=== PATIENT | male | born 1980 | race Caucasian/White ===

== ENCOUNTER 2018-11-20 22:18 | Emergency (ER) | payer BC, SELFPAY ==
[2018-11-20 22:25] VITALS: BP 158/81; PULSE 64; RESP 12; TEMP 36.8; O2SAT 100; BMI 38.9
--- NOTE | 2018-11-20 22:40 | PC.NURSE ---
Woman with pt came out to nurses station and was requesting something for pain for the pt. She was informed that the doctor would need to see him before he could be given pain medication. She then said we came from [place] and he is in a lot of pain. I told her that I understand he is in pain but the doctor is in with a patient right now. She then said don't you triage patient's? I told her that we do triage patients and he has been triaged. She then said to me so a pain of 10/10 doesn't get him seen first. I informed her that there are other patients in the department right now that I was not going to tell her why other patients were here to rationalize why he (the patient) hadn't been seen yet. I told her again that the provider would be in to see him as soon as she could that there was one or two patients to be seen before him. She then pulled the curtain open. I told her that we needed to shut the curtain and the door to the room for his (the patient's) privacy and other patients in the department privacy. She told me no it will stay open because I want the doctor to see how much pain he is in. I then told her that the door and curtain needed to be shut and if she refused to keep it shut I would have to ask her to go sit in the lobby.
[2018-11-20 22:41] LABS: RBC Urine 1-5/HPF (0-5/HPF); WBC Urine 0-1/HPF (0-5/HPF)
[2018-11-20 22:42] LABS: Bacteria Urine Few (2-10); Calcium Oxalate Crystals Urine Occasional; Hyaline Casts Urine 0-1/LPF; Mucus Urine 1+ (Negative); Squamous Epithelial Cell Urine 0-1 /HPF (0-5/HPF)
[2018-11-20 22:43] LABS: Culture Indicated Urine Cult Not Indicated
[2018-11-20 23:44] VITALS: BP 163/95; PULSE 67; O2SAT 98
[2018-11-20] MEDS: ACETAMINOPHEN 325 MG TABLET 650 MG PO (23:46)
[2018-11-20] MEDS: ONDANSETRON 4 MG ODT SL (23:46)
--- NOTE | 2018-11-21 | ED.MALEGU ---
HPI - Male Genitourinary General Chief complaint: Urogenital-Male Stated complaint: STATES KIDNEY STONES Time Seen by Provider: 11/20/18 23:40 Source: patient Mode of arrival: ambulatory Limitations: no limitations History of Present Illness HPI Narrative: Patient comes emergency department complaining of left flank pain that started about 3 hours ago. He states that he is here from the [facility] and was camping on [facility], and began to feel as though he may be having a kidney stone again. Patient states he has felt dehydrated for about the last week after dejaying for a wedding about a week ago and then being busy with other stressors in life. Patient states he has not been drinking enough fluids, and is concerned this may have impacted his symptoms. Patient admits to some nausea but no vomiting. No fevers or chills. No dysuria. No gross hematuria. No abdominal pain. Patient states the left flank pain radiates into his left testicle. Patient has had several experiences with kidney stones in the past, he states. No other complaints at this time. Related Data Previous Rx's Medication Instructions Recorded hydrocodone-acetaminophen 1 tab PO Q4-6H PRN #14 tab 11/21/18 ondansetron 4 mg PO Q6H PRN #14 tab 11/21/18 Allergies Allergy/AdvReac Type Severity Reaction Status Date / Time cefaclor [From [facility]] Allergy Verified 11/20/18 22:28 Review of Systems Constitutional Denies chills, Denies fever(s), Denies lethargy and Denies weakness Eyes Denies change in vision, Denies eye discharge, Denies irritation and Denies loss of vision ENT Ears, Nose, Mouth, and Throat: Denies change in voice, Denies neck pain and Denies sore throat Cardiovascular Denies chest pain, Denies irregular heart rhythm, Denies lightheadedness, Denies palpitations, Denies dyspnea, Denies dyspnea on exertion and Denies orthopnea Respiratory Denies cough, Denies dyspnea, Denies dyspnea on exertion and Denies wheezing Gastrointestinal Gastrointestinal: Reports abdominal pain (Left flank), Denies change in bowel habits, Denies diarrhea, Denies nausea and Denies vomiting Genitourinary Denies hematuria, Denies flank pain, Denies urinary incontinence and Denies urinary urgency Musculoskeletal Denies neck pain Integumentary/Breasts Denies pruritus, Denies erythema, Denies rash and Denies wounds Neurologic Denies confusion, Denies loss of vision and Denies weakness Psychiatric Denies anxiety, Denies confusion, Denies depression, Denies homicidal ideation and Denies suicidal ideation Endocrine Denies palpitations Hematologic/Lymphatic Denies easy bruising Allergic/Immunologic Denies wheezing [facility] Medical History Kidney stones (Acute) Surgical History Obesity surgery status (Acute) Social History Smoking Status: Unknown if ever smoked Social History Smoking Status: Unknown if ever smoked Comment: Surgical history: Gastric sleeve Exam Initial Vital Signs Initial Vital Signs: Vital Signs Temperature 98.2 F 11/20/18 22:25 Pulse Rate 64 11/20/18 22:25 Respiratory Rate 12 11/20/18 22:25 Blood Pressure 158/81 H 11/20/18 22:25 Pulse Oximetry 100 11/20/18 22:25 Const General: cooperative and well developed Nutritional Appearance: well nourished Orientation: alert, awake, oriented x3 and not confused [facility] Head: normocephalic and atraumatic Ears: external ears normal Nose: external nose normal and No nasal discharge Face and sinus: face symmetric and No dry mucous membranes Mouth: oral mucosae normal and moist mucous membranes Teeth and gingiva: dentition normal Eyes General: appearance normal, both eyes and all related structures Eyelids: eyelids normal Conjunctivae: conjunctivae normal Sclera: sclerae normal Pupils: PERRL EOM: EOM intact bilaterally Neck Neck: normal visual inspection, trachea midline, No lymphadenopathy, No midline deformity and No JVD Lymphatic: No lymphedema Chest Chest: normal inspection of the chest Resp Effort & Inspection: normal respiratory effort, able to speak in complete sentences, no respiratory distress and no use of accessory muscles Auscultation: clear to auscultation bilaterally, no rales, no rhonchi and no wheezes Cardio Rate: regular rate Rhythm: regular rhythm Heart Sounds: no click, no gallops, no murmurs and no rubs Pulses: normal peripheral pulses GI Inspection: non-distended Palpation: soft, no hepatosplenomegaly, No guarding, No pulsatile mass and No tender Auscultation: normal bowel sounds Back/Spine/Pelvis Back: CVA tenderness (Left, mild) Cervical Spine: cervical ROM normal and No pain with cervical ROM Thoracic/Lumbar Spine: thoracic and lumbar spine normal to inspection Skin General: no rashes or lesions noted, No jaundice and No petechiae Neuro General: alert, oriented x3, gait normal and no focal motor deficits Speech: speech normal Extrem General: full ROM, no clubbing, cyanosis or edema, no pedal edema and no calf tenderness Psych Appearance: well kempt Mental Status: mental status grossly normal Attitude: cooperative Thought Content: normal and suicidality Judgment: judgment good Course Course Narrative: Patient was treated symptomatically with IV fluid, Zofran, Tylenol, Toradol, and a small dose of Dilaudid. He was sent for a CT KUB to evaluate for possible kidney stone, and this did show a 6 mm stone at the left UVJ. We have discussed home management symptoms, as well as the indications for urology follow-up in the usual indications for return to the emergency department. Patient is stable for discharge home. Subsequent to this patient's leaving the emergency department, the CT, which was initially read by the shift leader radiologist, was over-read by our in-house radiologist the following day. The soft tissue mass which had been noted on the CT scan incidentally was given a low probability of neoplasm on the initial shift leader radiologist reading, and as such, given the patient's asymptomatic for this, was not addressed at discharge. However, the in-house radiology reading the next day placed more emphasis on the possibility of a neoplasm. As such, the patient was called at home to be advised that he should follow up for an MRI to further evaluate this finding. Orders Ordered: Discontinued Medications Acetaminophen (Tylenol) 650 mg PO NOW ONE Stop: 11/20/18 23:45 Last Admin: 11/20/18 23:46 Dose: 650 mg Hydromorphone HCl (Dilaudid) 0.5 mg IV NOW ONE Stop: 11/21/18 00:11 Last Admin: 11/21/18 00:17 Dose: 0.5 mg Sodium Chloride (Normal Saline 0.9%) 1,000 mls @ 1,000 mls/hr IV BOLUS ONE Stop: 11/21/18 01:09 Last Infusion: 11/21/18 01:47 Dose: 0 mls/hr Admin: 11/21/18 00:16 Dose: 1,000 mls/hr Ketorolac Tromethamine (Toradol) 30 mg IV NOW ONE Stop: 11/21/18 00:11 Last Admin: 11/21/18 00:17 Dose: 30 mg Ondansetron HCl (Zofran Odt) 4 mg SL NOW ONE Stop: 11/20/18 23:45 Last Admin: 11/20/18 23:46 Dose: 4 mg Vital Signs - 8 hr 11/20/18 22:25 11/20/18 23:44 Temperature 98.2 F Pulse Rate 64 67 Respiratory Rate 12 Blood Pressure 158/81 H Blood Pressure [Left Arm] 163/95 H Pulse Oximetry 100 98 MDM - Male Genitourinary Medical Records Attestation: I reviewed the patient's medical records. Lab Data Attestation: I reviewed the patient's lab results. Lab Results 11/20/18 Range/Units 22:22 Urine RBC 1-5/hpf (0-5/HPF) Urine WBC 0-1/hpf (0-5/HPF) Ur Squamous Epith Cells 0-1 /hpf (0-5/HPF) Calcium Oxalate Crystal Occasional H Urine Bacteria Few (2-10) H (None) Hyaline Casts 0-1/lpf (None) Urine Mucus 1+ H (Negative) Ur Culture Indicated? Cult not indicated Urine Dip Bedside Urine Glucose Negative Bedside Urine Bilirubin - Negative Bedside Urine Ketone + 15 Urine Specific [place] 1.030 Bedside Urine Occult Blood + Bedside Urine pH 6.0 Bedside Urine Protein +/- 15 Bedside Urine Urobilinogen - Negative Bedside Urine Nitrite - Negative Bedside Urine Leukocytes - Negative Esterase Imaging Data CT scan - abdomen: Attestation: I personally reviewed and interpreted this imaging study as follows: My impression: night shift supervisor radiologist interpretation: 4.3 cm circumscribed low attenuation mass extends from the inferior aspect of the left sacrum contiguous with the sacral spinal canal. This mass is nonspecific. Considerations would include meningitis seal or Tarlov cyst. Neoplasm less likely. Radiologist's impression: PROCEDURE: CT KIDNEY URETER BLADDER (KUB) INDICATIONS: Left flank pain, history of kidney stones TECHNIQUE: Noncontrast 5 mm thick sections acquired from the diaphragms to the symphysis. 5 mm thick coronal and sagittal reformats were then performed. For radiation dose reduction, the following was used: automated exposure control, adjustment of mA and/or kV according to patient size. COMPARISON: None. FINDINGS: Image quality: Excellent. Lung bases: Lung bases are clear. Heart size is normal. Urinary system: Both kidneys are normal in size. 2 mm stone is noted in the lower pole of the left kidney. 4 x 6 mm stone is noted just proximal to the left UVJ causing [id number] left-sided hydronephrosis. No right-sided renal stones or hydronephrosis. Bladder wall thickness is normal; no calcified bladder stones. Other solid organs: Liver is normal in size. Gallbladder contains small gallstones.. Pancreas is normal in contours. Spleen is normal in size. No adrenal nodules. Peritoneum and bowel: Unenhanced bowel loops demonstrate normal wall thickness and caliber. No free fluid or air. Nodes and vessels: No retroperitoneal or mesenteric adenopathy by size criteria. Aorta and inferior vena cava are normal in caliber. Abdominal wall: No ventral hernias. Pelvis: No free pelvic fluid. No inguinal hernias or adenopathy. There is a 4.0 x 4.3 x 3.6 cm low-density mass in the left paramedian, presacral lower pelvis. Lesion appears to communicate with the spinal canal via left S4 neural foramen. Bones: No suspicious bony lesions. No vertebral body compression fractures. Spine degenerative disc disease and facet arthropathy. IMPRESSION: 1. 4 x 6 mm stone in the distal left ureter causing mild to moderate left-sided hydronephrosis. 2. 2 mm nonobstructing left renal stone. 3. Cholelithiasis. 4. 4.0 x 4.3 x 3.6 cm left presacral low-density lesion which appears to communicate with the sacral spinal canal. Recommend MRI of the sacral spine with and without contrast in differentiating arachnoid cyst from neoplastic process such as dermoid. Final interpretation is concordant with preliminary interpretation. Dictated by: Alyssia Salas MD, PhD on 11/21/2018 at 7:26 Approved by: Alyssia Salas MD, PhD on 11/21/2018 at 7:34 Discharge Plan Departure Patient Disposition: Home Clinical Impression: Kidney stones Discharge Date/Time: 11/21/18 01:55 Interventions: ED Discharge Assessment Last Done: 11/21/18 01:54 Instructions: DI for Kidney Stones Activity Restrictions/Additional Instructions: Your CT scan showed a 6 mm stone that is in her ureter but about to enter your bladder. This is most likely the cause of her pain. However, based on the degree of movement the stone has already made, this should most likely pass on its own soon. Please continue to drink plenty of fluid. Take the pain and nausea medication, as needed. Please followup the urologist if you have not passed the stone after this next week. Prescriptions: New hydrocodone-acetaminophen 5-325 mg tablet 1 tab PO Q4-6H PRN (Reason: pain) Qty: 14 RF: 0 ondansetron 4 mg tablet,disintegrating 4 mg PO Q6H PRN (Reason: nausea and vomiting) Qty: 14 RF: 0 Referrals: [facility] Urology [Provider Group]
--- NOTE | 2018-11-21 00:11 | DI.CT.S_ITS ---
PROCEDURE: CT KIDNEY URETER BLADDER (KUB) INDICATIONS: Left flank pain, history of kidney stones TECHNIQUE: Noncontrast 5 mm thick sections acquired from the diaphragms to the symphysis. 5 mm thick coronal and sagittal reformats were then performed. For radiation dose reduction, the following was used: automated exposure control, adjustment of mA and/or kV according to patient size. COMPARISON: None. FINDINGS: Image quality: Excellent. Lung bases: Lung bases are clear. Heart size is normal. Urinary system: Both kidneys are normal in size. 2 mm stone is noted in the lower pole of the left kidney. 4 x 6 mm stone is noted just proximal to the left UVJ causing [id number] left-sided hydronephrosis. No right-sided renal stones or hydronephrosis. Bladder wall thickness is normal; no calcified bladder stones. Other solid organs: Liver is normal in size. Gallbladder contains small gallstones.. Pancreas is normal in contours. Spleen is normal in size. No adrenal nodules. Peritoneum and bowel: Unenhanced bowel loops demonstrate normal wall thickness and caliber. No free fluid or air. Nodes and vessels: No retroperitoneal or mesenteric adenopathy by size criteria. Aorta and inferior vena cava are normal in caliber. Abdominal wall: No ventral hernias. Pelvis: No free pelvic fluid. No inguinal hernias or adenopathy. There is a 4.0 x 4.3 x 3.6 cm low-density mass in the left paramedian, presacral lower pelvis. Lesion appears to communicate with the spinal canal via left S4 neural foramen. Bones: No suspicious bony lesions. No vertebral body compression fractures. Spine degenerative disc disease and facet arthropathy. IMPRESSION: 1. 4 x 6 mm stone in the distal left ureter causing mild to moderate left-sided hydronephrosis. 2. 2 mm nonobstructing left renal stone. 3. Cholelithiasis. 4. 4.0 x 4.3 x 3.6 cm left presacral low-density lesion which appears to communicate with the sacral spinal canal. Recommend MRI of the sacral spine with and without contrast in differentiating arachnoid cyst from neoplastic process such as dermoid. Final interpretation is concordant with preliminary interpretation. Dictated by: Alyssia Salas MD, PhD on 11/21/2018 at 7:26 Approved by: Alyssia Salas MD, PhD on 11/21/2018 at 7:34
[2018-11-21] MEDS: SODIUM CHLORIDE 0.9% 1,000 ML 1000 ML IV (00:16)
--- NOTE | 2018-11-21 00:16 | ED_ITS ---
HPI - Male Genitourinary General Chief complaint: Urogenital-Male Stated complaint: STATES KIDNEY STONES Time Seen by Provider: 11/20/18 23:40 Source: patient Mode of arrival: ambulatory Limitations: no limitations History of Present Illness HPI Narrative: Patient comes emergency department complaining of left flank pain that started about 3 hours ago. He states that he is here from the [facility] and was camping on [facility], and began to feel as though he may be having a kidney stone again. Patient states he has felt dehydrated for about the last week after dejaying for a wedding about a week ago and then being busy with other stressors in life. Patient states he has not been drinking enough fluids, and is concerned this may have impacted his symptoms. Patient admits to some nausea but no vomiting. No fevers or chills. No dysuria. No gross hematuria. No abdominal pain. Patient states the left flank pain radiates into his left testicle. Patient has had several experiences with kidney stones in the past, he states. No other complaints at this time. Related Data Previous Rx's Medication Instructions Recorded hydrocodone-acetaminophen 1 tab PO Q4-6H PRN #14 tab 11/21/18 ondansetron 4 mg PO Q6H PRN #14 tab 11/21/18 Allergies Allergy/AdvReac Type Severity Reaction Status Date / Time cefaclor [From [facility]] Allergy Verified 11/20/18 22:28 Review of Systems Constitutional Denies chills, Denies fever(s), Denies lethargy and Denies weakness Eyes Denies change in vision, Denies eye discharge, Denies irritation and Denies loss of vision ENT Ears, Nose, Mouth, and Throat: Denies change in voice, Denies neck pain and Denies sore throat Cardiovascular Denies chest pain, Denies irregular heart rhythm, Denies lightheadedness, Denies palpitations, Denies dyspnea, Denies dyspnea on exertion and Denies orthopnea Respiratory Denies cough, Denies dyspnea, Denies dyspnea on exertion and Denies wheezing Gastrointestinal Gastrointestinal: Reports abdominal pain (Left flank), Denies change in bowel habits, Denies diarrhea, Denies nausea and Denies vomiting Genitourinary Denies hematuria, Denies flank pain, Denies urinary incontinence and Denies urinary urgency Musculoskeletal Denies neck pain Integumentary/Breasts Denies pruritus, Denies erythema, Denies rash and Denies wounds Neurologic Denies confusion, Denies loss of vision and Denies weakness Psychiatric Denies anxiety, Denies confusion, Denies depression, Denies homicidal ideation and Denies suicidal ideation Endocrine Denies palpitations Hematologic/Lymphatic Denies easy bruising Allergic/Immunologic Denies wheezing [facility] Medical History Kidney stones (Acute) Surgical History Obesity surgery status (Acute) Social History Smoking Status: Unknown if ever smoked Social History Smoking Status: Unknown if ever smoked Comment: Surgical history: Gastric sleeve Exam Initial Vital Signs Initial Vital Signs: Vital Signs Temperature 98.2 F 11/20/18 22:25 Pulse Rate 64 11/20/18 22:25 Respiratory Rate 12 11/20/18 22:25 Blood Pressure 158/81 H 11/20/18 22:25 Pulse Oximetry 100 11/20/18 22:25 Const General: cooperative and well developed Nutritional Appearance: well nourished Orientation: alert, awake, oriented x3 and not confused [facility] Head: normocephalic and atraumatic Ears: external ears normal Nose: external nose normal and No nasal discharge Face and sinus: face symmetric and No dry mucous membranes Mouth: oral mucosae normal and moist mucous membranes Teeth and gingiva: dentition normal Eyes General: appearance normal, both eyes and all related structures Eyelids: eyelids normal Conjunctivae: conjunctivae normal Sclera: sclerae normal Pupils: PERRL EOM: EOM intact bilaterally Neck Neck: normal visual inspection, trachea midline, No lymphadenopathy, No midline deformity and No JVD Lymphatic: No lymphedema Chest Chest: normal inspection of the chest Resp Effort & Inspection: normal respiratory effort, able to speak in complete sentences, no respiratory distress and no use of accessory muscles Auscultation: clear to auscultation bilaterally, no rales, no rhonchi and no wheezes Cardio Rate: regular rate Rhythm: regular rhythm Heart Sounds: no click, no gallops, no murmurs and no rubs Pulses: normal peripheral pulses GI Inspection: non-distended Palpation: soft, no hepatosplenomegaly, No guarding, No pulsatile mass and No tender Auscultation: normal bowel sounds Back/Spine/Pelvis Back: CVA tenderness (Left, mild) Cervical Spine: cervical ROM normal and No pain with cervical ROM Thoracic/Lumbar Spine: thoracic and lumbar spine normal to inspection Skin General: no rashes or lesions noted, No jaundice and No petechiae Neuro General: alert, oriented x3, gait normal and no focal motor deficits Speech: speech normal Extrem General: full ROM, no clubbing, cyanosis or edema, no pedal edema and no calf tenderness Psych Appearance: well kempt Mental Status: mental status grossly normal Attitude: cooperative Thought Content: normal and suicidality Judgment: judgment good Course Course Narrative: Patient was treated symptomatically with IV fluid, Zofran, Tylenol, Toradol, and a small dose of Dilaudid. He was sent for a CT KUB to evaluate for possible kidney stone, and this did show a 6 mm stone at the left UVJ. We have discussed home management symptoms, as well as the indications for urology follow-up in the usual indications for return to the emergency department. Patient is stable for discharge home. Subsequent to this patient's leaving the emergency department, the CT, which was initially read by the night clerk radiologist, was over-read by our in-house radiologist the following day. The soft tissue mass which had been noted on the CT scan incidentally was given a low probability of neoplasm on the initial night clerk radiologist reading, and as such, given the patient's asymptomatic for this, was not addressed at discharge. However, the in-house radiology reading the next day placed more emphasis on the possibility of a neoplasm. As such, the patient was called at home to be advised that he should follow up for an MRI to further evaluate this finding. Orders Ordered: Discontinued Medications Acetaminophen (Tylenol) 650 mg PO NOW ONE Stop: 11/20/18 23:45 Last Admin: 11/20/18 23:46 Dose: 650 mg Hydromorphone HCl (Dilaudid) 0.5 mg IV NOW ONE Stop: 11/21/18 00:11 Last Admin: 11/21/18 00:17 Dose: 0.5 mg Sodium Chloride (Normal Saline 0.9%) 1,000 mls @ 1,000 mls/hr IV BOLUS ONE Stop: 11/21/18 01:09 Last Infusion: 11/21/18 01:47 Dose: 0 mls/hr Admin: 11/21/18 00:16 Dose: 1,000 mls/hr Ketorolac Tromethamine (Toradol) 30 mg IV NOW ONE Stop: 11/21/18 00:11 Last Admin: 11/21/18 00:17 Dose: 30 mg Ondansetron HCl (Zofran Odt) 4 mg SL NOW ONE Stop: 11/20/18 23:45 Last Admin: 11/20/18 23:46 Dose: 4 mg Vital Signs - 8 hr 11/20/18 22:25 11/20/18 23:44 Temperature 98.2 F Pulse Rate 64 67 Respiratory Rate 12 Blood Pressure 158/81 H Blood Pressure [Left Arm] 163/95 H Pulse Oximetry 100 98 MDM - Male Genitourinary Medical Records Attestation: I reviewed the patient's medical records. Lab Data Attestation: I reviewed the patient's lab results. Lab Results 11/20/18 Range/Units 22:22 Urine RBC 1-5/hpf (0-5/HPF) Urine WBC 0-1/hpf (0-5/HPF) Ur Squamous Epith Cells 0-1 /hpf (0-5/HPF) Calcium Oxalate Crystal Occasional H Urine Bacteria Few (2-10) H (None) Hyaline Casts 0-1/lpf (None) Urine Mucus 1+ H (Negative) Ur Culture Indicated? Cult not indicated Urine Dip Bedside Urine Glucose Negative Bedside Urine Bilirubin - Negative Bedside Urine Ketone + 15 Urine Specific [place] 1.030 Bedside Urine Occult Blood + Bedside Urine pH 6.0 Bedside Urine Protein +/- 15 Bedside Urine Urobilinogen - Negative Bedside Urine Nitrite - Negative Bedside Urine Leukocytes - Negative Esterase Imaging Data CT scan - abdomen: Attestation: I personally reviewed and interpreted this imaging study as follows: My impression: rn shift mgr radiologist interpretation: 4.3 cm ci rcumscribed low attenuation mass extends from the inferior aspect of the left sacrum contiguous with the sacral spinal canal. This mass is nonspecific. Considerations would include meningitis seal or Tarlov cyst. Neoplasm less likely. Radiologist's impression: PROCEDURE: CT KIDNEY URETER BLADDER (KUB) INDICATIONS: Left flank pain, history of kidney stones TECHNIQUE: Noncontrast 5 mm thick sections acquired from the diaphragms to the symphysis. 5 mm thick coronal and sagittal reformats were then performed. For radiation dose reduction, the following was used: automated exposure control, adjustment of mA and/or kV according to patient size. COMPARISON: None. FINDINGS: Image quality: Excellent. Lung bases: Lung bases are clear. Heart size is normal. Urinary system: Both kidneys are normal in size. 2 mm stone is noted in the lower pole of the left kidney. 4 x 6 mm stone is noted just proximal to the left UVJ causing [id number] left-sided hydronephrosis. No right-sided renal stones or hydronephrosis. Bladder wall thickness is normal; no calcified bladder stones. Other solid organs: Liver is normal in size. Gallbladder contains small gallstones.. Pancreas is normal in contours. Spleen is normal in size. No adrenal nodules. Peritoneum and bowel: Unenhanced bowel loops demonstrate normal wall thickness and caliber. No free fluid or air. Nodes and vessels: No retroperitoneal or mesenteric adenopathy by size criteria. Aorta and inferior vena cava are normal in caliber. Abdominal wall: No ventral hernias. Pelvis: No free pelvic fluid. No inguinal hernias or adenopathy. There is a 4.0 x 4.3 x 3.6 cm low-density mass in the left paramedian, presacral lower pelvis. Lesion appears to communicate with the spinal canal via left S4 neural foramen. Bones: No suspicious bony lesions. No vertebral body compression fractures. Spine degenerative disc disease and facet arthropathy. IMPRESSION: 1. 4 x 6 mm stone in the distal left ureter causing mild to moderate left-sided hydronephrosis. 2. 2 mm nonobstructing left renal stone. 3. Cholelithiasis. 4. 4.0 x 4.3 x 3.6 cm left presacral low-density lesion which appears to communicate with the sacral spinal canal. Recommend MRI of the sacral spine with and without contrast in differentiating arachnoid cyst from neoplastic process such as dermoid. Final interpretation is concordant with preliminary interpretation. Dictated by: Alyssia Salas MD, PhD on 11/21/2018 at 7:26 Approved by: Alyssia Salas MD, PhD on 11/21/2018 at 7:34 Discharge Plan Departure Patient Disposition: Home Clinical Impression: Kidney stones Discharge Date/Time: 11/21/18 01:55 Interventions: ED Discharge Assessment Last Done: 11/21/18 01:54 Instructions: DI for Kidney Stones Activity Restrictions/Additional Instructions: Your CT scan showed a 6 mm stone that is in her ureter but about to enter your bladder. This is most likely the cause of her pain. However, based on the degree of movement the stone has already made, this should most likely pass on its own soon. Please continue to drink plenty of fluid. Take the pain and nausea medication, as needed. Please followup the urologist if you have not passed the stone after this next week. Prescriptions: New hydrocodone-acetaminophen 5-325 mg tablet 1 tab PO Q4-6H PRN (Reason: pain) Qty: 14 RF: 0 ondansetron 4 mg tablet,disintegrating 4 mg PO Q6H PRN (Reason: nausea and vomiting) Qty: 14 RF: 0 Referrals: [facility] [Provider Group]
[2018-11-21] MEDS: HYDROMORPHONE 1 MG INJ 0.5 MG IV (00:17)
[2018-11-21] MEDS: KETOROLAC 60 MG/2 ML VIAL 30 MG IV (00:17)
--- NOTE | 2018-11-21 00:44 | PC.NURSE ---
Pt no longer nauseated,pain decreased to 6/10
[2018-11-21 01:54] VITALS: BP 147/96; PULSE 62; TEMP 37.1; O2SAT 99
== END 2018-11-21 01:55 | disposition home or self-care (01) ==
PROVIDERS: Emergency Provider Emergency Medicine
DX: N20.0 Calculus of kidney (principal)
CPT/HCPCS: 74176; 81003; 81015; 96361; 96374; 96375; 99283; 99284; J1170; J1885